=== PATIENT | female | born 1985 | race Caucasian/White ===

== ENCOUNTER 2020-05-06 01:18 | Emergency (ER) | payer OTHER ==
[~2020-05-06] VITALS: Ht 167.6 cm; Wt 74.8 kg
[2020-05-06 01:42] VITALS: BP 126/88
[2020-05-06] MEDS ORDERED: QUEtiapine 200mg tab ORAL ONE (01:45)
[2020-05-06 02:11] LABS: EOSINOPHILS % (AUTO) 1.7 % (0.0-3.0); HEMATOCRIT 43.3 % (37.0-47.0); HEMOGLOBIN 14.1 G/DL (12.0-16.0); LYMPHOCYTES % (AUTO) 43.1 % (20.0-45.0); MEAN CORPUSCULAR VOLUME 91 FL (80-99); MONOCYTES % (AUTO) 7.3 % (1.0-10.0); NEUTROPHILS % (AUTO) 46.9 % (45.0-75.0); PLATELET COUNT 234 K/UL (150-450); RED BLOOD COUNT 4.77 M/UL (4.20-5.40); RED CELL DISTRIBUTION WIDTH 12.6 % (11.6-14.8); WHITE BLOOD COUNT 6.5 K/UL (4.8-10.8)
[2020-05-06 02:21] LABS: ANION GAP 3 mmol/L (5-15); BLOOD UREA NITROGEN 14 mg/dL (7-18); CALCIUM 9.2 MG/DL (8.5-10.1); CARBON DIOXIDE 33 MMOL/L (21-32); CHLORIDE 103 MMOL/L (98-107); CREATININE 0.9 MG/DL (0.55-1.30); POTASSIUM 4.3 MMOL/L (3.5-5.1); SODIUM 139 MMOL/L (136-145)
[2020-05-06 02:24] LABS: APPEARANCE,URINE SLIGHTLY CLOUDY; BILIRUBIN, URINE NEGATIVE (NEGATIVE); COLOR,URINE PALE YELLOW; GLUCOSE, URINE (UA) NEGATIVE (NEGATIVE); KETONES,URINE NEGATIVE (NEGATIVE); LEUKOCYTE ESTERASE ,URINE 1+ (NEGATIVE); NITRITE,URINE NEGATIVE (NEGATIVE); PH,URINE 7 (4.5-8.0); PROTEIN,URINE NEGATIVE (NEGATIVE); UROBILINOGEN,URINE NORMAL MG/DL (0.0-1.0)
[2020-05-06 02:26] LABS: ALBUMIN 3.9 G/DL (3.4-5.0); ALKALINE PHOSPHATASE 64 U/L (46-116); ASPARTATE AMINO TRANSFERASE 5 U/L (15-37); BILIRUBIN,TOTAL 0.2 MG/DL (0.2-1.0)
[2020-05-06 02:39] LABS: ALANINE AMINOTRANSFERASE 17 U/L (12-78)
--- NOTE | 2020-05-06 03:07 | Emergency Room Report ---
History of Present Illness General Chief Complaint: Behavioral Complaint Source: Patient Present Illness HPI 34-year-old female presents for behavioral evaluation. Brought in by EMS from Street. Screaming and yelling states she needs to be placed in a psychiatric facility. Notes history of schizophrenia. States she is supposed to be taking Zyprexa and Seroquel. States she has not taken her medication in some time now. Denies hearing voices. Denies SI or HI. No other aggravating relieving factors. Denies any other associated symptoms Allergies: Coded Allergies: No Known Allergies (Unverified , 05/06/20) COVID-19 Screening Contact w/high risk pt: No Experienced COVID-19 symptoms?: No COVID-19 Testing performed LINER REPLACER: No Patient History Past Medical History: psych hx Past Surgical History: none Pertinent Family History: none Social History: Denies: smoking, alcohol use, drug use Now: No Immunizations: UTD Reviewed Nursing Documentation: PMH: Agreed; PSxH: Agreed Nursing Documentation-PMH History Of Psychiatric Problem: Yes Review of Systems All Other Systems: negative except mentioned in HPI Physical Exam Vital Signs Date Time Temp Pulse Resp B/P (MAP) Pulse Ox O2 Delivery O2 Flow Rate FiO2 05/06/20 01:32 98.8 98 20 126/88 (101) 99 Room Air Sp02 EP Interpretation: reviewed, normal General Appearance: no apparent distress, alert, GCS 15, non-toxic Head: normocephalic, atraumatic Eyes: bilateral eye normal inspection, bilateral eye PERRL ENT: hearing grossly normal, normal pharynx, no angioedema, normal voice Neck: full range of motion, supple/symm/no masses Respiratory: chest non-tender, lungs clear, normal breath sounds, speaking full sentences Cardiovascular #1: regular rate, rhythm, no edema Cardiovascular #2: 2+ carotid (R), 2+ carotid (L), 2+ radial (R), 2+ radial (L) , 2+ dorsalis pedis (R), 2+ dorsalis pedis (L) Gastrointestinal: normal bowel sounds, non tender, soft, non-distended, no guarding, no rebound Rectal: deferred Genitourinary: normal inspection, no CVA tenderness Musculoskeletal: back normal, normal range of motion, gait/station normal, non- tender Neurologic: alert, motor strength/tone normal, oriented x3, sensory intact, responsive, speech normal Psychiatric: judgement/insight normal, memory normal, no delusions, anxious Reflexes: 3+ bicep (R), 3+ bicep (L), 3+ tricep (R), 3+ tricep (L), 3+ knee (R) , 3+ knee (L) Skin: no rash Lymphatic: no adenopathy Medical Decision Making Diagnostic Impression: Primary Impression: Behavioral change ER Course Hospital Course 34 yo F presents c/o feeling anxious. stating she needs psych evaluation Differential diagnoses include: Psychosis, EtOH, drug abuse Clinical course patient placed on stretcher. On quality assurance monitor chassis. After initial history and physical ordered labs, seroquel and zyprexa Labs reviewed-electrolytes okay, no leukocytosis, hemoglobin/hematocrit stable, tox panel negative Patient allowed to rest. Given food. On reassessment patient states she feels better. States she is okay to be discharged. I do not believe patient requires emergent psychiatric evaluation. I will provide referrals. Also provide refills of her Zyprexa and Seroquel. Safe for discharge for close outpatient follow-up i. I feel this is a highly complex case requiring extensive working including EKG/Rhythm strip, Xray/CT/US, Blood/urine lab work, repeat exams while in ED, and administration of strong opiates/narcotics for pain control, admission to hospital or close patient follow up. Diagnosis - behavioral change Stable and discharged to home. Followup with PMD. Return to ED if symptoms recur or worsen Labs Test 05/06/20 02:05 05/06/20 02:15 White Blood Count 6.5 K/UL (4.8-10.8) Red Blood Count 4.77 M/UL (4.20-5.40) Hemoglobin 14.1 G/DL (12.0-16.0) Hematocrit 43.3 % (37.0-47.0) Mean Corpuscular Volume 91 FL (80-99) Mean Corpuscular Hemoglobin 29.7 PG (27.0-31.0) Mean Corpuscular Hemoglobin Concent 32.7 G/DL (32.0-36.0) Red Cell Distribution Width 12.6 % (11.6-14.8) Platelet Count 234 K/UL (150-450) Mean Platelet Volume 8.2 FL (6.5-10.1) Neutrophils (%) (Auto) 46.9 % (45.0-75.0) Lymphocytes (%) (Auto) 43.1 % (20.0-45.0) Monocytes (%) (Auto) 7.3 % (1.0-10.0) Eosinophils (%) (Auto) 1.7 % (0.0-3.0) Basophils (%) (Auto) 1.0 % (0.0-2.0) Sodium Level 139 MMOL/L (136-145) Potassium Level 4.3 MMOL/L (3.5-5.1) Chloride Level 103 MMOL/L (98-107) Carbon Dioxide Level 33 MMOL/L (21-32) Anion Gap 3 mmol/L (5-15) Blood Urea Nitrogen 14 mg/dL (7-18) Creatinine 0.9 MG/DL (0.55-1.30) Estimat Glomerular Filtration Rate > 60 mL/min (>60) Glucose Level 108 MG/DL (74-106) Calcium Level 9.2 MG/DL (8.5-10.1) Total Bilirubin 0.2 MG/DL (0.2-1.0) Aspartate Amino Transf (AST/SGOT) 5 U/L (15-37) Alanine Aminotransferase (ALT/SGPT) 17 U/L (12-78) Alkaline Phosphatase 64 U/L (46-116) Total Protein 7.9 G/DL (6.4-8.2) Albumin 3.9 G/DL (3.4-5.0) Globulin 4.0 g/dL Albumin/Globulin Ratio 1.0 (1.0-2.7) Salicylates Level 0.8 ug/mL (2.8-20) Acetaminophen Level < 2 MCG/ML (10-30) Serum Alcohol < 3 mg/dL Urine Color Pale yellow Urine Appearance Slightly cloudy Urine pH 7 (4.5-8.0) Urine Specific [place] 1.015 (1.005-1.035) Urine Protein Negative (NEGATIVE) Urine Glucose (UA) Negative (NEGATIVE) Urine Ketones Negative (NEGATIVE) Urine Blood Negative (NEGATIVE) Urine Nitrite Negative (NEGATIVE) Urine Bilirubin Negative (NEGATIVE) Urine Urobilinogen Normal MG/DL (0.0-1.0) Urine Leukocyte Esterase 1+ (NEGATIVE) Urine RBC 0-2 /HPF (0 - 2) Urine WBC 0-2 /HPF (0 - 2) Urine Squamous Epithelial Cells Few /LPF (NONE/OCC) Urine Bacteria None /HPF (NONE) Urine HCG, Qualitative Negative (NEGATIVE) Urine Opiates Screen Negative (NEGATIVE) Urine Barbiturates Screen Negative (NEGATIVE) Phencyclidine (PCP) Screen Negative (NEGATIVE) Urine Amphetamines Screen Negative (NEGATIVE) Urine Benzodiazepines Screen Negative (NEGATIVE) Urine Cocaine Screen Negative (NEGATIVE) Urine Marijuana (THC) Screen Negative (NEGATIVE) Last Vital Signs Date Time Temp Pulse Resp B/P (MAP) Pulse Ox O2 Delivery O2 Flow Rate FiO2 05/06/20 01:42 98.8 98 20 126/88 99 Room Air Status: improved Disposition: HOME, SELF-CARE Condition: Stable Scripts Olanzapine (Zyprexa Zydis) 10 Mg Tab.rapdis 10 MG ORAL DAILY, #30 TAB 0 Refills Prov: Stewart Martínez MD 05/06/20 Quetiapine Fumarate (SEROQUEL) 300 Mg Tablet 300 MG ORAL DAILY, #30 TAB Prov: Stewart Martínez MD 05/06/20 Referrals: NON PHYSICIAN (PCP) Stewart Martínez MD May 06, 2020 03:07
[2020-05-06 03:50] VITALS: BP 122/81
[2020-05-06 05:12] VITALS: BP 124/76
[2020-05-06] MEDS ORDERED: ZYPREXA ZYDIS10 MG ORAL (05:41)
[2020-05-06] MEDS ORDERED: SEROQUEL300 MG ORAL (05:41)
[2020-05-06 05:57] VITALS: BP 125/76
== END 2020-05-06 05:57 | disposition home or self-care (01) ==
LOC: EDBD 01:18 → EMR 02:18
DX: F68.8 Other specified disorders of adult personality and behavior (principal); F20.9 Schizophrenia, unspecified
CPT/HCPCS: 36415; 80053; 80307; 81003; 81025; 85025; G0480; G0481; Z7502; 99284